=== PATIENT | male | born 1965 | race Two or more races ===

== ENCOUNTER 2018-08-18 04:49 | Inpatient (IN) | payer SELFPAY ==
[~2018-08-18] VITALS: Ht 167.6 cm; Wt 87.1 kg
[2018-08-18] MEDS ORDERED: ASPirin 81 mg TAB PO ONE ×2 (10:30)
[2018-08-18 10:40] LABS: Basophils # (auto) 0.1 uL; Basophils % (auto) 0.5 % (0.0-2.0); Eosinophils # (auto) 0 uL; Eosinophils % (auto) 0.1 % (0.0-7.0); Hemoglobin 17.1 g/dL (13.5-17.5); Lymphocytes # (auto) 1.5 uL; Lymphocytes % (auto) 12.8 % (10.0-50.0); Mean Corpuscular Hgb Conc. 35.6 g/dL (32.0-36.0); Mean Corpuscular Volume 84.4 fL (80.0-100.0); Monocytes # (auto) 0.3 uL; Monocytes % (auto) 2.6 % (0.0-12.0); Neutrophils # (auto) 9.5 uL; Nucleated Red Blood Cells % 0.1 %; Platelet Count (auto) 279 10^3/uL (140-450); Red Blood Cells 5.69 10^6/uL (4.5-5.90); Red Cell Distribution Width 13.3 % (11.8-14.3); White Blood Cell 11.3 10^3/uL (4.4-10.8)
[2018-08-18 10:52] LABS: Albumin 4.3 g/dL (3.4-5.0); BUN/Creatinine Ratio 24.1; Calcium 9.2 mg/dL (8.5-10.1); Potassium 3.7 mmol/L (3.5-5.1)
[2018-08-18 10:55] LABS: Bilirubin, Total 0.6 mg/dL (0.2-1.0); Total Protein 8.1 g/dL (6.4-8.2)
[2018-08-18] MEDS ORDERED: SODIUM CHLORIDE 0.9% 1,000 ML IV ONE (11:00)
[2018-08-18 11:13] LABS: INR 0.9 (0.9-1.15); Partial Thromboplastin Time 29.2 sec (23.78-33.04); Prothrombin Time 9.7 sec (9.27-12.13)
[2018-08-18] MEDS ORDERED: hydrALAZINE HCL 20 MG/ML VL IV PRN (12:15)
[2018-08-18] MEDS ORDERED: NITROGLYCERIN 0.4 MG SL TAB SL PRN (12:30)
[2018-08-18] MEDS ORDERED: MORPHINE SULFATE 4 MG/ML SYR/VIAL IV PRN (12:30)
[2018-08-18 12:55] LABS: Cholesterol 156 mg/dL (< 200); Triglycerides 182 mg/dL (< 150)
[2018-08-18 12:58] LABS: HDL Cholesterol 44 mg/dL (40-59); LDL Cholesterol 99 mg/dL (< 100)
[2018-08-18 13:08] LABS: Urine Bacteria NONE SEEN /hpf (None Seen); Urine Blood Negative /uL (Negative); Urine Specific Gravity 1.035 (1.001-1.035); Urine WBC <1 /hpf (0 - 3)
[2018-08-18] MEDS ORDERED: CLOPIDOGREL BISULFATE 75 MG TAB PO ONE (13:45)
[2018-08-18] MEDS ORDERED: ENOXAPARIN SOD 40 MG/0.4 ML SYRINGE SC ONE (14:30)
[2018-08-18 17:00] VITALS: BP 152/94
--- NOTE | 2018-08-18 17:00 | NUR ---
Telemetry admit from [facility] admitted to Telemetry unit after SBAR received. Patient oriented to Fauzia Viera RN primary RN, unit, room, bed, and unit policies regarding patient care and visiting hours. Patient now on continuous telemetry monitoring, tele box # 30. Patient weighed by bedscale and encouraged to call if they need something. All questions and concerns addressed, patient verbalized understanding. Bed is in lowest, locked position with side rails up x2 and call light within reach. Will continue to monitor q1h and PRN
[2018-08-18 17:25] VITALS: BP 152/94
[2018-08-18] MEDS ORDERED: METO-158 PO (17:37)
[2018-08-18] MEDS ORDERED: METF-929 PO (17:37)
[2018-08-18] MEDS ORDERED: SIMV10TA84 PO (17:37)
[2018-08-18] MEDS ORDERED: AMLO5TAB13 PO (17:37)
[2018-08-18] MEDS ORDERED: ASPI81TA27 PO (17:37)
[2018-08-18] MEDS ORDERED: LOSA-49 PO (17:37)
--- NOTE | 2018-08-18 17:46 | NUR ---
PAGED Phone message left with Dr Weinstein to ask if patient can continue home medications and start on accu checks.
--- NOTE | 2018-08-18 18:21 | NUR ---
TELEPHONE ORDER T/O received to continue home medications except metformin, start Accu checks ACHS on moderate scale, Ambien 5mg x1 dose. Orders noted.
[2018-08-18] MEDS ORDERED: LOSARTAN POTASSIUM 50 MG TAB PO ONE (18:30)
[2018-08-18] MEDS ORDERED: DEXTROSE (50%) 50ML SYRG IV PRN (18:30)
--- NOTE | 2018-08-18 18:35 | NUR ---
DR BECKFORD ROUNDED AND EXPLAINED TEST RESULTS TO FAMILY.
--- NOTE | 2018-08-18 19:17 | NUR ---
DR MAYA Updated on patients status and BP. states "if no AFIB overnight and cleared by cardio may be discharged to SNF tomorrow for rehab". Transfer paper work printed and placed in chart.
--- NOTE | 2018-08-18 19:35 | NUR ---
Opening Shift Note Assumed care of patient, awake and alert x4. Family at bedside, all questions and concerns addressed. No S/S of distress/SOB or pain. Bilateral yeast pusher and pedal pushes equal and strong, but patient reporting numbness to both right upper and lower extremities. Instructed on POC and to call for assist PRN, will continue to monitor for changes Q1hr and PRN. Bed in lowest locked position, side rails up x2, call light within reach, bed alarm on. Addendum: 08/19/18 at 0400 by GRIFFIN HALL RN RN ADDITION: DEEPAK bilaterally at time of original note.
[2018-08-18 21:37] VITALS: BP 158/86
[2018-08-18] MEDS ORDERED: ZOLPIDEM TARTRATE 5 MG TAB PO ONE (22:00)
[2018-08-18] MEDS ORDERED: InsuLIN REG 1unit/0.01ml Soln (100units/ml) SC SCH (22:00)
[2018-08-18] MEDS ORDERED: PRAVASTATIN SODIUM 20 MG TAB PO SCH (22:00)
--- NOTE | 2018-08-18 22:15 | NUR ---
Urinal Patient having difficulty using urinal due to numbness of right extremity. Patient cleaned and linens changed. Patient instructed to call for assistance if having difficulty with urinal. Patient verbalized understanding. Will continue to monitor.
[2018-08-18] MEDS: ACCU-CHEK COMFORT CURVE STRIP VI SCH (23:21)
--- NOTE | 2018-08-19 04:15 | NUR ---
Sensation to right hand Patient reports "thirty percent" feeling to right hand and is able to use urinal without assistance from staff. Urine noted to be clear and yellow with normal odor. Patient reports no change to right leg at this time. No s/s of distress. Bed alarm remains on. Will continue to monitor.
[2018-08-19 05:03] VITALS: BP 159/91
[2018-08-19 06:01] LABS: Basophils # (auto) 0.1 uL; Basophils % (auto) 1.4 % (0.0-2.0); Eosinophils # (auto) 0.1 uL; Eosinophils % (auto) 1.5 % (0.0-7.0); Hematocrit 47.5 % (41.0-53.0); Hemoglobin 16.3 g/dL (13.5-17.5); Lymphocytes # (auto) 2.2 uL; Mean Corpuscular Hemoglobin 29.4 pg (28.0-32.0); Mean Corpuscular Hgb Conc. 34.3 g/dL (32.0-36.0); Mean Corpuscular Volume 85.9 fL (80.0-100.0); Monocytes # (auto) 0.5 uL; Monocytes % (auto) 5.8 % (0.0-12.0); Neutrophils % (auto) 63.3 % (37.0-80.0); Platelet Count (auto) 268 10^3/uL (140-450); Red Blood Cells 5.53 10^6/uL (4.5-5.90)
[2018-08-19 06:24] LABS: BUN/Creatinine Ratio 28.6; Calcium 8.4 mg/dL (8.5-10.1); Potassium 3.1 mmol/L (3.5-5.1)
[2018-08-19] MEDS: InsuLIN REG 1unit/0.01ml Soln (100units/ml) SC SCH ×2 (06:43→11:14)
[2018-08-19] MEDS: ACCU-CHEK COMFORT CURVE STRIP VI SCH ×2 (06:43→11:14)
--- NOTE | 2018-08-19 07:26 | NUR ---
Closing Note Patient sitting up in bed, awake and alert, speaking on cellphone. No s/s of distress. Bed alarm on. Care endorsed to Hernando KIM.
--- NOTE | 2018-08-19 08:15 | NUR ---
Opening Shift Note Assumed care of patient, awake and alert. No S/S of distress/SOB or pain. Instructed on POC and to call for assist PRN, will continue to monitor for changes Q1hr and PRN.
[2018-08-19 09:00] VITALS: BP 160/95
[2018-08-19] MEDS ORDERED: ASPirin 81 mg TAB PO SCH (10:00)
[2018-08-19] MEDS ORDERED: amLODIPine BESYLATE 5 MG TAB PO SCH (10:00)
[2018-08-19] MEDS ORDERED: ENOXAPARIN SOD 40 MG/0.4 ML SYRINGE SC SCH (10:00)
[2018-08-19] MEDS ORDERED: LOSARTAN POTASSIUM 50 MG TAB PO SCH (10:00)
[2018-08-19] MEDS ORDERED: POTASSIUM CHL 20 Meq TABLET PO ONE (11:00)
--- NOTE | 2018-08-19 11:45 | NUR ---
Faxed face sheet and H&P to [facility] [phone], .
[2018-08-19 13:00] VITALS: BP 149/89
--- NOTE | 2018-08-19 14:00 | NUR ---
Dr. Garza at bedside discussed with patient and he is cleared from cardiology perspective.
--- NOTE | 2018-08-19 14:30 | NUR ---
Patient reported that he does not want to go to SNF and wants to go home with HH instead, Dr. Weinstein made aware and patient can go home with HH today, Pavithra ([facility] senior case manager) is going to arrange HH and will call patient tomorrow.
[2018-08-19 15:27] VITALS: BP 149/89
--- NOTE | 2018-08-19 15:50 | NUR ---
Spoke to Antonia ([facility] case hardener) regarding patient wants a walker, she said will order and deliver at his house, patient and family notified.
--- NOTE | 2018-08-19 16:26 | NUR ---
Discharge instructions given as ordered. Encourage to follow up with PMD (Follow up with [facility] #[phone] Address : [address] [place], [place], [address] Patient already has appointment on Monday. )as instructed. All questions and concerns addressed. Patient verbalized understanding. Medication reconciliation form completed and copy given to patient. IV removed with catheter intact, pressure dressing applied. Telemetry unit returned to [facility]. Patient taken to vehicle via wheelchair with all personal belongings, accompanied by staff and family member. No distress noted at time of departure.
[2018-08-19] MEDS ORDERED: METOPROLOL TARTRATE 50 MG TAB PO SCH (18:00)
--- NOTE | 2018-08-20 13:56 | NUR ---
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
== END 2018-08-19 17:28 | disposition home or self-care (01) | DRG 65 ==
LOC: ER 04:49 → TELE 12:28 → TELE-WESTW 16:57
PROVIDERS: ADMIT Internal Medicine; ATTEND Internal Medicine
DX: I63.9 Cerebral infarction, unspecified (principal); G81.91 Hemiplegia, unspecified affecting right dominant side; E78.5 Hyperlipidemia, unspecified; E11.9 Type 2 diabetes mellitus without complications; I10 Essential (primary) hypertension; Z80.42 Family history of malignant neoplasm of prostate; Z79.84 Long term (current) use of oral hypoglycemic drugs
CPT/HCPCS: 36415; 70450; 70551; 71045; 72125; 80048; 80053; 80061; 81001; 82962; 83036; 84484; 85025; 85610; 85730; 93005; 93306; 93886; 96360; 96372; G0378; J1815

== ENCOUNTER 2024-10-15 19:14 | Emergency (ER) | payer OTHER ==
[~2024-10-15] VITALS: Ht 167.6 cm; Wt 86.4 kg
[~2024-10-15 19:14] MED LIST: AMLO1TAB22 PO; ASPI-543 PO; LOSA-535 PO; METF-929 PO; METO-158 PO; SIMV10TA20 PO
[2024-10-15 19:35] LABS: Urine Bacteria None Seen /hpf (None Seen)
[2024-10-15 19:47] LABS: Urine Blood Negative /uL (Negative); Urine Clarity Clear (Clear); Urine Color Light-Yellow (Yellow); Urine Protein, UAD 1+ (Negative); Urine Squamous Epithelial Cell FEW /hpf (<5); Urine Urobilinogen Normal (Negative); Urine WBC 1 /HPF (0-3)
--- NOTE | 2024-10-15 20:05 | ED.PDOC ---
HPI Comments 59-year-old male with PMHx HTN, DM, CVA presents with a chief complaint of chest pain x onset this morning. Patient states that his pain is localized to his left chest radiates from his left arm/shoulder, describes as sharp, and rates his pain a 6/10. Patient denies any active pain at this time. Patient is Irish speaking. Chief Complaint: Chest Pain Time Seen by MD: 19:41 Reviewed Notes: Medications, Allergies Allergies: Coded Allergies: NO KNOWN ALLERGIES (Unverified , 08/18/18) Home Meds Reported Medications Metformin HCl (Metformin Hydrochloride) 1,000 Mg Tab, 1000 MG PO BID, TAB 08/18/18 Metoprolol Tartrate (Metoprolol Tartrate) 50 Mg Tab, 50 MG PO QPM for 30 Days, MG 08/18/18 Amlodipine Besylate (Amlodipine Besylate) 5 Mg Tab, 10 MG PO DAILY for 30 Days, MG 08/18/18 Losartan Potassium (Losartan Potassium) 100 Mg Tab, 100 MG PO DAILY for 30 Days, MG 08/18/18 Simvastatin (Simvastatin) 10 Mg Tab, 1 TAB PO QPM, #30 TAB 5 Refills 08/18/18 Aspirin (Aspir-Low) 81 Mg Tab, 81 MG PO DAILY for 30 Days, MG 08/18/18 Information Source: Patient Mode of Arrival: Wheelchair Severity: Moderate Timing: Hours Duration: Since onset Prehospital treatment: None Location: Chest (L) Radiation: Shoulder (L) Quality: Sharp Onset: At Rest Cardiac Risk Factors: HTN, Diabetes PE Risk Factors: None History of: Similar pain in past Vital Signs Vital Signs Date Time Temp Pulse Resp B/P (MAP) Pulse Ox O2 Delivery O2 Flow Rate FiO2 10/16/24 01:16 98.1 92 16 129/79 (96) 96 98.1 10/15/24 20:20 Room Air* 0 21 Physical Exam General: Awake, alert and oriented. No acute distress. Skin: Skin in warm, dry and intact. Appropriate color for ethnicity. HEENT: The head is normocephalic and atraumatic. Conjunctivae are clear without exudates or hemorrhage. Sclera is non-icteric. EOM are intact. No signs of nyst agmus. Eyelids are normal in appearance without swelling or lesions. Oral mucosa is pink and moist Neck: The neck is supple with normal range of motion. No JVD. Cardiac: Heart rate and rhythm are normal. No murmurs, gallops, or rubs are auscultated. Respiratory: No signs of respiratory distress. Lung sounds are clear in all lobes bilaterally without rales, ronchi, or wheezes. Abdominal: Abdomen is soft, non-tender without distention. Bowel sounds are present and normoactive in all four quadrants. Extremities: Upper and lower extremities are atraumatic in appearance without deformity or edema. Neurological: The patient is awake, alert and oriented to person, place, and time with normal speech. Speech is clear. There is no facial asymmetry. Psychiatric: Appropriate mood and affect. Good judgement and insight. Review of Systems: REVIEW OF SYSTEMS: No fever, no chills, or fatigue HEENT: No sore throat, no earache, no congestion, no neck pain. Cardiac: Positive chest pain which has resolved. No palpitations. Lungs: No shortness of breath, no cough. GI: No nausea, no vomiting, no diarrhea, no constipation, no abdominal pain : No dysuria, frequency, or urgency. No hematuria. Musculoskeletal: No joint pain , no joint swelling, no extremity edema. Skin: No rash, no itching. Neuro: No headache, no dizziness, no weakness Past Medical History PAST MEDICAL HISTORY: DM, HTN Family History Family History: Unknown Social History Smoker: Non-Smoker Alcohol: Denies ETOH Use Drugs: Denies Drug Use Lives In: Home Constitutional: reports: others EENTM: reports: others Respiratory: reports: others Cardiovascular: reports: others Gastrointestinal: reports: others Genitourinary: reports: others Neurological: reports: others Musculoskeletal: reports: others Integumetry: reports: others Allergic/Immunocompromised: reports: others Hematologic/Lymphatic: reports: others Endocrine: reports: others Unable to Obtain due to: Other All Other Systems: Deferred Physical Exam General Appearance: Other HEENT: Other Neck: Other Respiratory: Other Cardiovascular: Other Breast Exam: Other Gastrointestinal: Other Genitalia: Other Pelvic: Other Rectal: Other Extremities: Other Neurologic: Other Cerebellar Function: Other Reflexes: Other Skin: Other Lymphatic: Other EKG EKG : Pulse Rate (adult): 74 [place]: Normal Cardiac Rhythm: NSR Block: None Hypertrophy: LAE ST: Normal Was a procedure done? Was a procedure done?: No CP Differential Dx Differential Diagnosis: Other Comment Differential diagnoses considered include acute ischemic coronary syndrome, aortic dissection, cardiac tamponade, mediastinitis, pulmonary embolus, pneumothorax, tension pneumothorax, esophageal rupture, coronary artery vaso spasm, myocarditis, pericarditis, pneumonia, pulmonary edema, esophageal tear, pancreatitis, aortic stenosis, dilated cardiomyopathy, hypertrophic cardiomyopathy, mitral valve prolapse, malignancy, pleuritis, pneumomediastinum, primary pulmonary hypertension, cholecystitis, esophageal spasm, esophagus, gastritis, GERD, peptic ulcer disease, costochondritis, fibromyalgia, rib fractu re, herpes zoster, radicular syndromes, thoracic outlet syndrome, somatization. X-Ray, Labs, Meds, VS Vital Signs Date Time Temp Pulse Resp B/P (MAP) Pulse Ox O2 Delivery O2 Flow Rate FiO2 10/16/24 01:16 98.1 92 16 129/79 (96) 96 98.1 10/15/24 23:08 98.0 67 16 142/82 (102) 96 98.0 10/15/24 21:37 69 10/15/24 20:20 Room Air* 0 21 10/15/24 20:16 74 10/15/24 19:25 74 10/15/24 19:20 98.2 84 18 148/83 (104) 96 98.2 Lab Test 10/15/24 20:15 10/15/24 19:30 10/15/24 19:25 Range/Units Troponin I High Sensitivity < 3 L < 3 L </=54 ng/L White Blood Count 9.3 4.4-10.8 10^3/uL Red Blood Count 5.57 4.5-5.90 10^6/uL Hemoglobin 16.8 13.5-17.5 g/dL Hematocrit 47.9 41.0-53.0 % Mean Corpuscular Volume 86.0 80.0-100.0 fL Mean Corpuscular Hemoglobin 30.2 28.0-32.0 pg Mean Corpuscular Hemoglobin Concent 35.1 32.0-36.0 g/dL Red Cell Distribution Width 13.7 11.8-14.3 % Platelet Count 293 140-450 10^3/uL Mean Platelet Volume 8.6 6.9-10.8 fL Neutrophils (%) (Auto) 57.4 37.0-80.0 % Lymphocytes (%) (Auto) 33.3 10.0-50.0 % Monocytes (%) (Auto) 7.4 0.0-12.0 % Eosinophils (%) (Auto) 1.1 0.0-7.0 % Basophils (%) (Auto) 0.8 0.0-2.0 % Neutrophils # (Auto) 5.3 1.6-8.6 10 ^3/uL Lymphocytes # (Auto) 3.1 0.4-5.4 10 ^3/uL Monocytes # (Auto) 0.7 0-1.3 10 ^3/uL Eosinophils # (Auto) 0.1 0-0.8 10 ^3/uL Basophils # (Auto) 0.1 0-0.2 10 ^3/uL Nucleated Red Blood Cells 0.1 % Sodium Level 138 136-145 mmol/L Potassium Level 4.1 3.5-5.1 mmol/L Chloride Level 102 98-107 mmol/L Carbon Dioxide Level 30 20-31 mmol/L Anion Gap 6 5-15 Blood Urea Nitrogen 18 9-23 mg/dL Creatinine 0.80 0.700-1.30 mg/dL Glomerular Filtration Rate Calc 103 >90 mL/min BUN/Creatinine Ratio 22.5 H 10.0-20.0 Serum Glucose 160 H 74-106 mg/dL Calcium Level 10.4 8.7-10.4 mg/dL Total Bilirubin 0.3 0.2-1.0 mg/dL Aspartate Amino Transferase (AST) 11 L 13-40 U/L Alanine Aminotransferase (ALT) 29 7-40 U/L Alkaline Phosphatase 74 46-116 U/L B-Type Natriuretic Peptide 6.13 0-100 pg/mL Total Protein 7.8 5.7-8.2 g/dL Albumin 4.9 H 3.2-4.8 g/dL Urine Color Light-yellow Yellow Urine Clarity Clear Clear Urine pH 7.0 5.0-9.0 Urine Specific [place] 1.030 1.001-1.035 Urine Protein 1+ H Negative Urine Ketones Negative Negative Urine Blood Negative Negative /uL Urine Nitrite Negative Negative Urine Bilirubin Negative Negative Urine Urobilinogen Normal Negative mg/dL Urine Leukocyte Esterase Negative Negative /uL Urine RBC <1 0 - 3 /hpf Urine Microscopic WBC 1 0-3 /HPF Urine Squamous Epithelial Cells Few <5 /hpf Urine Bacteria None seen None Seen /hpf Urine Glucose 4+ H Normal mg/dL Current Medications Medications (Trade) Dose Ordered Sig/Peter Route Start Time Stop Time Status Last Admin Aspirin 324 mg ONCE ONCE PO 10/15/24 20:00 10/15/24 20:01 DC 10/15/24 20:24 Time of 1ST Reevaluation: 03:06 Reevaluation 1ST: N/A Patient Education/Counseling: Need For Follow Up Family Education/Counseling: No Family Present Departure 1 Departure Time of Disposition: 23:16 Impression: Primary Impression: Chest pain Additional Impression: Lung nodules Disposition: HOME / SELF CARE / HOMELESS Condition: Stable Additional Instructions: INSTRUCCIONES DE LARA DE Urgencias Consulte con parks mdico de cabecera sobre cualquier hallazgo anormal en parks radiografa de trax. Los resultados se incluyen aqu: ---- IMPRESSION: There are ill-defined nodules in the lung bases in prior CT examination and there increased lung markings in the bases in the current examination follow-up CT examination of the chest is suggested for direct comparison.----- Instrucciones: Daisy atentamente todas las instrucciones proporcionadas en nevin paquete. Aunque le hayan dado el lara del Departamento de Emergencias, esto no significa que tenga un "certificado de buena catrachito". [] Hoy no se ramey realizado ningn diagnstico definitivo para manoj sntomas. Es posible que ests en proceso de desarrollar keira enfermedad grave. Es por eso que debe regresar al servicio de urgencias sin falta si presenta algn sntoma nuevo o que empeora (especialmente si manoj sntomas incluyen dolor en el pecho, dificultad para respirar, dolor abdominal, fiebre, dolor de jody, confusin, dificultad para jorge l o caminar). Tambin es muy importante que consulte a un mdico de atencin primaria dentro de los prximos 3 a 5 del valle para realizar un seguimiento. Si no puede conseguir keira garima, regrese al servicio de urgencias para keira nueva evaluacin. Dolor en el pecho: Instrucciones de cuidado Tabla de contenido Descripcin general Card Fixer puedes cuidarte en casa? Cundo debes pedir ayuda? Crditos Descripcin general Hay muchas cosas que pueden causar dolor en el pecho. Algunas no son graves y mejoran por s solas en unos del valle. Sin embargo, algunos tipos de dolor en el pecho requieren ms pruebas y tratamiento. Es posible que parks mdico le haya recomendado keira visita de seguimiento en los prximos del valle. Si no mejora, es posible que necesite ms pruebas o tratamiento. Aunque parks mdico le haya dado de lara, debe estar atento a cualquier problema. El mdico le realiz keira revisin exhaustiva, peter a veces pueden surgir problemas ms adelante. Si presenta sntomas nuevos o si estos no mejoran, busque atencin mdica de inmediato. Si tiene un dolor o presin en el pecho peor o diferente que dura ms de 5 minutos o si se desmay (perdi el conocimiento), llame al 911 o busque otra ayuda de emergencia de inmediato. Keira visita mdica es solo un paso en parks tratamiento. Incluso si se siente mejor, debe seguir las recomendaciones de parks mdico, gloria asistir a todas las citas de seguimiento sugeridas y denise los medicamentos exactamente gloria se le indique. Garden le ayudar a recuperarse y a prevenir problemas futuros. Card Fixer puedes cuidarte en casa? Descansa hasta que te sientas mejor. [place] parks medicamento exactamente gloria se lo recetaron. Llame a parks mdico si doris que tiene algn problema con parks medicamento. No conduzca despus de denise un analgsico recetado. Cundo debes pedir ayuda? Llame al si: Te desmayaste (perdiste el conocimiento). Tienes dificultad grave para respirar. Tiene sntomas de un ataque cardaco. Estos pueden incluir: Dolor o presin en el pecho, o keira sensacin extraa en el pecho. Transpiracin. Dificultad para respirar. Nuseas o vmitos. Dolor, presin o keira sensacin extraa en la espalda, el eyd, la mandbula o la parte superior del abdomen o en mary o ambos hombros o brazos. Mareo o debilidad repentina. Un ritmo cardaco rpido o irregular. Despus de llamar al , el operador podra indicarle que mastique keira aspirina para adultos o de 2 a 4 aspirinas de dosis baja. Espere la ambulancia. No intente conducir. Llame a parks mdico ahora o busque atencin mdica inmediata si: Tienes alguna dificultad para respirar. Tiene un dolor en el pecho nuevo o diferente. Se siente mareado o aturdido o gloria si se pudiera desmayar. Preste atencin de cerca a los cambios en parks catrachito y asegrese de comunicarse con parks mdico si no mejora gloria se esperaba. Crditos para el dolor de pecho: Instrucciones de cuidado Actualizado al: 2023 Autor: Personal de [employer]UC[employer] yañez Junta de revisin clnica Toda la educacin de [employer]UC[employer] yañez es revisada por un equipo que incluye mdicos, enfermeras, profesionales avanzados, dietistas registrados y otros profesionales de la catrachito. Comments 59-year-old male with chest pain. EKG negative for signs of ischemia. High sensitivity troponin negative. CXR shows no acute process. Presentation not suggestive of acute coronary syndrome, pulmonary embolism or aortic dissection. Patient improved at time of discharge. No hypoxia, respiratory distress or dyspnea at discharge. Patient able to ambulate without difficulty. Patient well-appearing, nontoxic. Advised prompt follow-up with PCP, return to the ED with any new, worsening or concerning symptoms. I reviewed the following notes from the pt's past medical encounters: N/A The following tests were ordered, and results were reviewed by me: (See diagnostic results section) The following test were independently interpreted by me: EKG, chest x-ray Additional information was gathered from interviewing the following independent historians: (N/A) I reviewed and agreed with the following test results read by other providers: Chest x-ray I discussed treatments and results with medical personnel and patient Decision regarding hospitalization or escalation of hospital level of care: Risks and benefits of admission for further treatment of patient's condition was considered however due to patient's stable condition patient will be discharged to follow up closely or return to care for worsening of condition or inability to follow up. Critical Care Note Critical Care Time?: No Stability Stability form required: No Heart Score Heart Score: Heart Score Response (Comments) Value History Slightly Suspicious 0 EKG Normal 0 Age 45-64 1 Risk Factors >3 or Hx ASHD 2 Troponin Normal limit 0 Total 3 I personally scribed for HOLA TERESA MD ([email or web address]) on 10/15/24 at 20:05. Electronically submitted by Luis Miguel Light ([email or web address]). I personally scribed for HOLA TERESA MD ([email or web address]) on 10/15/24 at 20:10. Electronically submitted by Luis Miguel Light ([email or web address]). I personally scribed for HOLA TERESA MD ([email or web address]) on 10/15/24 at 20:16. Electronically submitted by Luis Miguel Light ([email or web address]). HOLA TERESA MD Oct 15, 2024 20:05
[2024-10-15 20:18] LABS: Basophils # (auto) 0.1 10 ^3/uL (0-0.2); Basophils % (auto) 0.8 % (0.0-2.0); Eosinophils # (auto) 0.1 10 ^3/uL (0-0.8); Eosinophils % (auto) 1.1 % (0.0-7.0); Hematocrit 47.9 % (41.0-53.0); Hemoglobin 16.8 g/dL (13.5-17.5); Lymphocytes # (auto) 3.1 10 ^3/uL (0.4-5.4); Lymphocytes % (auto) 33.3 % (10.0-50.0); Mean Corpuscular Hemoglobin 30.2 pg (28.0-32.0); Mean Corpuscular Hgb Conc. 35.1 g/dL (32.0-36.0); Monocytes # (auto) 0.7 10 ^3/uL (0-1.3); Monocytes % (auto) 7.4 % (0.0-12.0); Neutrophils # (auto) 5.3 10 ^3/uL (1.6-8.6); Neutrophils % (auto) 57.4 % (37.0-80.0); Nucleated Red Blood Cells % 0.1 %; Platelet Count (auto) 293 10^3/uL (140-450); Red Blood Cells 5.57 10^6/uL (4.5-5.90); Red Cell Distribution Width 13.7 % (11.8-14.3); White Blood Cell 9.3 10^3/uL (4.4-10.8)
[2024-10-15] MEDS: MORPHINE SULFATE INJ 2 MG/ml SYRG IV ONE (20:22)
[2024-10-15] MEDS: ASPirin 81 mg TAB PO ONE (20:24)
[2024-10-15 20:33] LABS: Alanine Aminotransferase 29 U/L (7-40); Albumin 4.9 g/dL (3.2-4.8); Alkaline Phosphatase 74 U/L (46-116); Anion Gap 6 (5-15); Aspartate Aminotransferase 11 U/L (13-40); BUN/Creatinine Ratio 22.5 (10.0-20.0); Bilirubin, Total 0.3 mg/dL (0.2-1.0); Blood Urea Nitrogen 18 mg/dL (9-23); Calcium 10.4 mg/dL (8.7-10.4); Carbon Dioxide 30 mmol/L (20-31); Chloride 102 mmol/L (98-107); Glucose 160 mg/dL (74-106); Potassium 4.1 mmol/L (3.5-5.1); Sodium 138 mmol/L (136-145); Total Protein 7.8 g/dL (5.7-8.2)
--- NOTE | 2024-10-15 21:38 | ECG ---
[facility] Test Date: 2024-10-15 Test Time: 21:37:34 Pat Name: MOLLY MCDOWELL Department: ED Room: Gender: Admission Specialist: : [id number] Requested By: HOLA TERESA Order Number: [id number] Reading MD: Indio Castelan Measurements Intervals [place] Rate: 69 P: 33 KS: 162 QRS: 68 QRSD: 95 T: 14 QT: 390 QTc: 418 Interpretive Statements Sinus rhythm Electronically Signed On 10-17-2024 20:51:22 PDT by Indio Castelan Please click the below link to view image of tracing.
--- NOTE | 2024-10-15 23:11 | DVH ---
CHEST RADIOGRAPH Indication: cp Technique: Single frontal view of the chest was obtained Comparison: CHEST PORTABLE on DOS: 07/02/22, CXRP on DOS: 07/02/[address] of June 2022 FINDINGS: Increased markings in the lung bases prior chest CT there were ill-defined nodules in the lung bases. Heart size remains within normal limits. There also chronic degenerative changes involving the left acromioclavicular joint IMPRESSION: There are ill-defined nodules in the lung bases in prior CT examination and there increased lung rob ings in the bases in the current examination follow-up CT examination of the chest is suggested for d irect comparison. There are chronic degenerative changes involving the left acromioclavicular joint. Possibly due to o ld fracture
[2024-10-16 01:16] VITALS: BP 129/79; PULSE 92; RESP 16; TEMP 98.1; O2SAT 96
--- NOTE | 2024-10-17 06:36 | ECG ---
[facility] Test Date: 2024-10-15 Test Time: 19:25:46 Pat Name: MOLLY MCDOWELL Department: ER Room: Gender: Excellence Specialist: : [id number] Requested By: HOLA TERESA Order Number: [id number] Reading MD: Indio Castelan Measurements Intervals [place] Rate: 74 P: 50 RI: 169 QRS: 56 QRSD: 93 T: 46 QT: 396 QTc: 440 Interpretive Statements Sinus rhythm Probable left atrial enlargement Electronically Signed On 10-17-2024 20:50:16 PDT by Indio Castelan Please click the below link to view image of tracing.
== END 2024-10-16 01:23 | disposition home or self-care (01) ==
LOC: ER 19:14
DX: R07.89 Other chest pain (principal); R91.1 Solitary pulmonary nodule; E11.9 Type 2 diabetes mellitus without complications; I10 Essential (primary) hypertension; Z79.899 Other long term (current) drug therapy; Z79.84 Long term (current) use of oral hypoglycemic drugs; Z79.82 Long term (current) use of aspirin; Z86.73 Personal history of transient ischemic attack (TIA), and cerebral infarction without residual deficits
CPT/HCPCS: 36415; 71045; 80053; 81001; 83880; 84484; 85025; 93005